=== PATIENT | female | born 1955 | race Caucasian/White ===

== ENCOUNTER 2016-09-13 07:36 | Day surgery (SDC) | payer BC, OTHER ==
--- NOTE | ~2016-09-13 | OP ---
Record Of Operation [facility] [address] [place]. [address] NAME: MAGO CRUZ : 51 STATUS : REG [facility] [place] PAT#: [id number] AGE: 61 ADM/REG DATE : 09/13/16 MR#: [id number] REPORT SERV DATE: 09/13/16 DICTATED BY: ALEXIS GRADNER DATE: 09/13/16 REPORT STATUS : Draft TRANSCRIBED BY: MODL DATE: 09/13/16 DATE OF PROCEDURE: 09/13/2016 PREOPERATIVE DIAGNOSIS: Acute L2 compression fracture with intractable back pain. POSTOPERATIVE DIAGNOSIS: Acute L2 compression fracture with intractable back pain. PROCEDURE: Navigation-assisted L2 kyphoplasty. RADIOGRAPHER CARDIAC CATHETERIZATION: Ahmet Taveras. ANESTHESIA: General. BLOOD LOSS: 10 mL. INDICATIONS FOR SURGERY: A 61-year-old female, who is rather morbidly obese, had a fall with approximately 10 days ago with severe pain immediately afterwards. The patient is seen in our office on a couple of visits and the pain has become so intractable she cannot function at home, cannot stand or walk, cannot even get into the bathroom without multiple assists. Plain x-rays reveal an L2 compression fracture. CT scan confirms the same. We had tried her treating with medications and bracing, but that failed. She is brought to surgery for the above procedure having failed conservative care. Prior to surgery, I explained the risk of infection, cement extravasation that could result in vascular or pulmonary collapse with . There could be a vessel injury, neurologic deficit including everything up to including paralysis, the hematoma can occur. No guarantee this will give complete pain relief. Consent form is signed. DESCRIPTION OF PROCEDURE: The patient was identified in preoperative holding area. Antibiotic prophylaxis was given. Neurophysiology monitoring leads were inserted. The patient was brought to the operative suite. General anesthetic including endotracheal intubation was administered. The patient was placed prone on a George spine frame. Bony prominences were carefully padded. Thoracolumbar spine was scrubbed with Hibiclens solution. DuraPrep was painted. Sterile drapes were applied. Because of the complexity of surgery and small pedicles, we felt the intraoperative navigation was going to be mandatory in order to safely place the cannulas across the pedicles. A small stab wound was carried out at the right posterior superior iliac spine. A percutaneous pin with navigational frame attached was inserted in PSIS. Intraoperative CT scan with O-arm was obtained. CT information was used to register the navigational system. With navigational assistance, I was able to place a navigated needle across the pedicle of left and right side. The obturators were removed. A guidewire was placed through the cannula. The original cannula was removed. The kyphoplasty cannula was then placed over the guidewire, and with live C-arm, we removed the guidewire and placed the kyphoplasty balloon and deflated it and then inserted 4 mL of polymethylmethacrylate under continuous C- arm imaging. No extravasation was seen. The cannulas were removed. AP and lateral x-rays Record Of [address] [address] NAME: MAGO CRUZ : 51 STATUS : REG [facility] [place] PAT#: [id number] AGE: 61 ADM/REG DATE : 09/13/16 MR#: [id number] REPORT SERV DATE: 09/13/16 DICTATED BY: ALEXIS GARDNER DATE: 09/13/16 REPORT STATUS : Draft TRANSCRIBED BY: EMILY DATE: 09/13/16 showed excellent position of the cement. Sterile dressings were applied. The patient returned to the supine position, awakened, extubated, and taken to recovery room in satisfactory condition having tolerated procedure well. BHAVNA/EMILY Alexis Gardner D.O. / [id number] CC: Consuelo Casper M.D.
[~2016-09-13 07:36] MED LIST: ABILIFY15 PO; ADVAIR250 INH; CALTRA600D PO; CYANO1000T PO; DITRO5 PO; EFFEXOR XR150 MG PO; IRON PO; JUICE PLUS PO; MIRAPEX1 MG PO; NEXIUM40 PO; NUVIGIL250 MG PO; PRILO PO; PRISTIQ100 MG PO; SINGULAIR1 PO; VITAMIN D1000 UNI1 PO; ZOCOR40 PO; ZYRTEC ALLGY10 MG PO
== END 2016-09-13 14:05 | disposition home or self-care (01) ==
LOC: SDC 07:36
PROVIDERS: Orthopaedic Surgery Orthopaedic Surgery of the Spine
PROC: 0QU03JZ Supplement Lumbar Vertebra with Synthetic Substitute, Percutaneous Approach (ICD-10-PCS; 2016-09-13)
PROC: 0QS03ZZ Reposition Lumbar Vertebra, Percutaneous Approach (ICD-10-PCS; principal; 2016-09-13 08:45)
DX: M48.56XA Collapsed vertebra, not elsewhere classified, lumbar region, initial encounter for fracture (principal); J44.9 Chronic obstructive pulmonary disease, unspecified; E66.01 Morbid (severe) obesity due to excess calories; K44.9 Diaphragmatic hernia without obstruction or gangrene; G47.33 Obstructive sleep apnea (adult) (pediatric); Z99.89 Dependence on other enabling machines and devices; K21.9 Gastro-esophageal reflux disease without esophagitis; Z98.84 Bariatric surgery status; Z91.040 Latex allergy status; Z91.09 Other allergy status, other than to drugs and biological substances; Z91.013 Allergy to seafood; Z79.51 Long term (current) use of inhaled steroids; Z79.899 Other long term (current) drug therapy
CPT/HCPCS: 80048; 85014; 85018; 93005; C1726; J0330; J1170; J2250; J2405; J2710; J3010; Q9967